=== PATIENT | female | born 1930 | race Caucasian/White ===

== ENCOUNTER 2018-06-12 10:24 | Observation (INO) | payer MEDICARE ==
[2018-06-12] MEDS ORDERED: NS 0.9% 1000 ML** 1,000 ML IV ONE (10:36)
--- NOTE | 2018-06-12 10:40 | ED ---
Complex/Multi-Sys Presentation - HPI Summary HPI Summary: Pt is a 88 y/o female brought in by EMS who presents to the ED c/o weakness. At 8:00 this morning she slid out of bed due to weakness, which is now resolved. She is concerned that something bad happened this morning in bed since she didnt get up to urinate in the middle of the night. Pt denies any injuries, and is able to move all extremities. She feels off-balance when standing up. She denies any CP, SOB, dizziness, neck pain, leg pain, or hip pain. Yesterday she had a cystoscopy performed by Dr. Chavez for a recent bladder infection. Pt was on antibiotics for the infection. Pt normally walks with a cane and lives alone. - History Of Current Complaint Time Seen by Provider: 06/12/18 10:25 Hx Obtained From: Patient, EMS Onset/Duration: Gradual Onset, Lasting Hours - This morning at 8:00, Resolved Timing: Constant Aggravating Factor(s): Recent cystoscopy Alleviating Factor(s): Nothing Associated Signs And Symptoms: Positive: Weakness. Negative: Dizziness, SOB, Chest Pain Related History: Recent Illness - bladder infection - Allergies/Home Medications Allergies/Adverse Reactions: Allergies Allergy/AdvReac Type Severity Reaction Status Date / Time No Known Allergies Allergy Verified 06/12/18 10:50 Home Medications: Home Medications Aspirin 81 mg PO DAILY WITH MEAL 06/12/18 [History Confirmed 06/12/18] PMH/Surg Hx/FS Hx/Imm Hx Endocrine/Hematology History: Denies: Hx Diabetes Cardiovascular History: Reports: Hx Hypertension Denies: Hx Congestive Heart Failure, Hx Pacemaker/ICD History: Denies: Hx Dialysis, Hx Renal Disease Musculoskeletal History: Reports: Hx Arthritis Sensory History: Reports: Hx Cataracts, Hx Contacts or Glasses, Hx Hearing Aid Opthamlomology History: Reports: Hx Cataracts, Hx Contacts or Glasses Psychiatric History: Denies: Hx Panic Disorder - Cancer History Hx Chemotherapy: No Hx Radiation Therapy: No - Surgical History Surgery Procedure, Year, and Place: x3, RIGHT LEG COMPOUND FX Infectious Disease History: No Infectious Disease History: Denies: Traveled Outside the [place] in Last 30 Days - Family History Known Family History: Negative: Blood Disorder - Social History Alcohol Use: Weekly Hx Substance Use: No Substance Use Type: Reports: None Substance Use Comment - Amount & Last Used: unknown Hx Tobacco Use: No Smoking Status (MU): Never Smoked Tobacco Review of Systems Positive: Other - generalized weakness Negative: Chest Pain Negative: Shortness Of Breath Negative: Arthralgia - hip, Myalgia - neck, leg Neurological: Other - off balance, NEGATIVE: dizziness All Other Systems Reviewed And Are Negative: Yes Physical Exam - Summary Physical Exam Summary: Appearance: Well appearing, no pain distress Skin: warm, dry, reflects adequate perfusion Head/face: normal Eyes: EOMI, FELICITAS ENT: mucous membranes moist Neck: supple, non-tender Respiratory: CTA, breath sounds present Cardiovascular: RRR, pulses symmetrical Abdomen: non-tender, soft Bowel Sounds: present Musculoskeletal: normal, strength/ROM intact Neuro: sensory motor intact, A&Ox3, generalized weakness, shuffling gait but able to support her own weight without falling Triage Information Reviewed: Yes Vital Signs On Initial Exam: Initial Vitals Temp Pulse Resp BP Pulse Ox 99.3 F 91 16 146/64 98 06/12/18 10:27 06/12/18 10:27 06/12/18 10:27 06/12/18 10:27 06/12/18 10:27 Vital Signs Reviewed: Yes Diagnostics - Vital Signs Vital Signs Temp Pulse Resp BP Pulse Ox 06/12/18 10:27 99.3 F 91 16 146/64 98 - Laboratory Result Diagrams: 06/12/18 13:18 06/12/18 11:43 Lab Statement: Any lab studies that have been ordered have been reviewed, and results considered in the medical decision making process. - Radiology CXR Radiology Interpretation Completed By: Radiologist Summary of Radiographic Findings: NO ACTIVE CARDIOPULMONARY DISEASE. ED physician reviewed radiology report. - CT Brain CT CT Interpretation Completed By: Radiologist Summary of CT Findings: 1. NO ACUTE INTRACRANIAL PATHOLOGY. 2. MILD PROMINENCE OF THE VENTRICULAR SYSTEM WITH SUSPECTED THE SULCI, WHICH CAN BE SEEN IN THE SETTING of NORMAL PRESSURE HYDROCEPHALUS. ED physician reviewed radiology report. - EKG 10:38 Cardiac Rate: NL - 68 bpm EKG Rhythm: Sinus Rhythm ST Segment: Normal Summary of EKG Findings: Nl axis, nl intervals Complex Multi-Symp Course/Dx Course Of Treatment: Nurse's notes reviewed. Patient with generalized weakness , shuffling gait and recent fall. She was instrumented yesterday with cystoscopy. Had recent UTI. Urine today is negative. She does have leukocytosis and elevated CRP. The x-ray is negative. There is no other definite source of infection. She was hydrated here in feeling well but still remains a significant fall risk. I discussed the case with the hospitalist who has accepted the admission. - Diagnoses Differential Diagnoses/HQI/PQRI: Closed Cranial Trauma, Metabolic Abnormality, Sepsis, Urinary Tract Infection Provider Diagnoses: Fall, Generalized weakness, Leukocytosis - Physician Notifications Discussed Care Of Patient With: Jer Estevez Time Discussed With Above Provider: 14:12 Instructed by Provider To: Admit As Inpatient Discharge - Sign-Out/Discharge Documenting (check all that apply): Patient Departure - Admit Patient Received Moderate/Deep Sedation with Procedure: No - Discharge Plan Condition: Stable Disposition: ADMITTED TO [facility] Referrals: Grace Maradiaga MD [Primary Care Provider] - - Billing Disposition and Condition Condition: STABLE Disposition: Admitted to [facility] - Attestation Statements Document Initiated by Scribe: Yes Documenting Scribe: Amena Maharaj Provider For Whom Maryibe is Documenting (Include Credential): Evert Durham MD Scribe Attestation: IAmena, scribed for Evert Durham MD on 06/12/18 at 1424. Scribe Documentation Reviewed: Yes Provider Attestation: The documentation as recorded by the Amena liao accurately reflects the service I personally performed and the decisions made by , Evert Durham MD Status of Scribe Document: Viewed
[2018-06-12 12:18] LABS: Urine Appearance Clear; Urine Bilirubin Negative (Negative); Urine Blood Negative (Negative); Urine Color Yellow; Urine Glucose Negative (Negative); Urine Ketones Negative (Negative); Urine Nitrite Negative (Negative); Urine Protein Negative (Negative); Urine Specific Gravity 1.019 (1.010-1.030); Urine Urobilinogen Negative (Negative)
[2018-06-12 12:37] LABS: TSH (Thyroid Stimulating Horm) 1.49 mcIU/mL (0.34-5.60)
[2018-06-12 13:03] LABS: Albumin 3.7 g/dL (3.2-5.2); Albumin/Globulin Ratio 1.5 (1-3); C Reactive Protein 46.83 mg/L (<8.01); Calcium 8.8 mg/dL (8.6-10.3); EGFR African American 88.7 (>60); EGFR Non-African American 73.3 (>60); Globulin 2.5 g/dL (2-4); Total Protein 6.2 g/dL (6.4-8.9)
[2018-06-12 13:36] LABS: ABS Basophils 0 10^3/ul (0-0.2); ABS Eosinophils 0.1 10^3/ul (0-0.6); ABS Lymphocytes 1.6 10^3/ul (1.0-4.8); ABS Monocytes 1.1 10^3/ul (0-0.8); ABS Neutrophils 9.1 10^3/ul (1.5-7.7); ABS Nucleated RBC 0 10^3/ul; Eosinophil % 0.4 %; Hematocrit 35 % (35-47); Hemoglobin 11.6 g/dl (12.0-16.0); Lymphocyte % 13.2 %; Mean Corpuscular HGB Conc 34 g/dl (31-36); Mean Corpuscular Hemoglobin 33 pg (27-31); Mean Corpuscular Volume 97 fL (80-97); Mean Platelet Volume 8.3 fL (7.4-10.4); Nucleated Red Blood Cells % 0.1; Platelet Count 138 10^3/ul (150-450); Red Blood Count 3.55 10^6/ul (4.00-5.40); Red Cell Distribution Width 15 % (10.5-15); White Blood Count 11.8 10^3/ul (3.5-10.8)
[2018-06-12] MEDS ORDERED: cefTRIAXone(*) 1 GM in NS 0.9% 50 ML* 50 ML IVPB ONE (13:50)
[2018-06-12 13:59] LABS: INR 0.93 (0.77-1.02)
[2018-06-12] MEDS ORDERED: Acetaminophen TAB* 325 MG PO PRN (15:39)
[2018-06-12] MEDS ORDERED: Ondansetron INJ* 2 MG/ML VIAL IV PRN (15:39)
[2018-06-12] MEDS ORDERED: Enoxaparin(*) 40 MG/0.4 ML SYR SUBCUT SCH (16:00)
[2018-06-12] MEDS ORDERED: Atorvastatin* 10 MG TAB PO SCH ×2 (17:00)
--- NOTE | 2018-06-12 18:21 | HP ---
ADMISSION HISTORY AND PHYSICAL: DATE OF ADMISSION: 06/12/18 PRIMARY CARE PROVIDER: Dr. Maradiaga. HEALTHCARE PROXY: Is her daughter. CODE STATUS: DNR, discussed code status with the patient and her daughter. New MOL completed. SOURCE OF INFORMATION: History obtained from interview with the patient and her daughter. RELIABILITY: Fair. CHIEF COMPLAINT: Altered mental status. HISTORY OF PRESENT ILLNESS: This is an 88-year-old female with past medical history of TIA in 2014 as well as recent urinary tract infection with E. coli in April 2018, worsening urinary incontinence for which was seen by Dr. Chavez. She was treated for 3 weeks of Myrbetriq as well as 1 week of antibiotics, which she recently completed then returned to see Dr. Chavez yesterday for a followup at which time, she underwent a cystoscopy. She went to bed last night at 8 o'clock and this morning when she did not answer her phone at 8:30 in the morning as she usually does when her daughter calls every morning, daughter became concerned. The patient was found on the floor alert, but had difficult time explaining how she arrived there. She does hold a Life alert and did not hit the button. She seemed confused about the events leading up to her being on the floor , although that is too big, but at same time cannot outline the sequence of the events that led to her falling to the floor. She had no pain, but because, she was more confused and could not identify how she landed up on the floor, she was brought in the emergency room for evaluation. She has had no nausea. She has been nauseous today, now improved, but no emesis. She had headache earlier, this is now resolved. Her daughter felt that she has had more unsteady gait today. PAST MEDICAL HISTORY: Includes hypertension, arthritis, cataracts, history of suspected TIA in 2015, recent urinary tract infection April 2018 with E. coli. She had a right shoulder dislocation as well as potential history of DVT in 2014. It is unconfirmed by this author. MEDICATIONS: Reviewed from the patient's list: 1. Triamcinolone twice daily as needed. 2. Compression stocking use during the day. 3. Atorvastatin 5 mg daily. 4. Hydrochlorothiazide 12.5 mg daily. 5. Multivitamin 1 tab daily. 6. Calcium/vitamin D 500/400 one in the evening. 7. Vitamin D 400 mg in the evening as well. 8. Alendronate 70 mg once a week. ALLERGIES: No known drug allergies. FAMILY HISTORY: Father at 87 of unknown causes. Mother at 43 of childbirth. SOCIAL HISTORY: Lives alone. Uses a cane regularly. No tobacco, rare alcohol. REVIEW OF SYSTEMS: As per HPI. Otherwise, all other systems negative. PHYSICAL EXAMINATION GENERAL: Elderly woman, sitting up in bed, interactive, pleasant, in no apparent distress. VITAL SIGNS: In the emergency room, blood pressure 109/53, heart rate 73, respiratory rate 17, 97% on room air, T-max in the emergency room 99.3. HEENT: Oropharynx is clear. She has moist mucous membranes. Sclerae are anicteric. She has regular rate and rhythm. She has an early peaking 2/6 systolic ejection murmur loudest in the right upper sternal border. LUNGS: Clear with trace rales in her right base. ABDOMEN: Soft, nontender, nondistended. EXTREMITIES: Warm and well perfused, trace bilateral lower extremity edema. NEUROLOGIC: She is alert and oriented x3. Her cranial nerves II through XII are intact. She has intact strength throughout. PSYCHIATRIC: She has no apparent anxiety, agitation, or depression. DIAGNOSTIC STUDIES/LAB DATA: Labs reviewed. Noted for benign urine. Glucose 106, lactic 1.2, TSH 1.49, white blood cell count is 11.8 similar to February, hemoglobin is 11.6 decreased from February 2018, platelets 138. Data reviewed. Brain CT, impression: No acute intracranial pathology, mild prominence of the ventricular system with respect to the sulci which can be seen in the setting of normal pressure hydrocephalus. Chest x-ray, impression: No active cardiopulmonary disease. EKG, impression: Normal sinus rhythm. Left axis, good airway progression. No ST or T wave changes. ASSESSMENT AND PLAN: An 88-year-old female with past medical history of transient ischemic attack, found on the floor this morning with question how she arrived there. 1. Altered mental status, doubt transient ischemic attack, although the patient does have a history, should remain on aspirin. Gait is unsteady when tested by emergency room physician. I think she would benefit from neuro checks as well as continue monitoring in the hospital overnight. I do not think she needs telemetry at this time. We will continue home medications as her urine cultures remain negative as well as monitor for debility. Request Physical Therapy consultation tomorrow given unsteady gait. 2. Hypertension. Continue hydrochlorothiazide. 3. Hyperlipidemia. Continue atorvastatin. 4. History of transient ischemic attack. We will continue aspirin as well as blood pressure and cholesterol control. 5. DVT prophylaxis is Lovenox. TIME SPENT: Greater than 60 minutes spent in admission with this patient, greater than half spent face to face with the patient and her daughter. [id number]/[facility] #: [id number] [place]
[2018-06-13] MEDS ORDERED: Aspirin 81 mg CHEW TAB* 81 MG TAB.CHEW PO SCH (08:30)
[2018-06-13] MEDS ORDERED: Calcium/Vitamin D TAB 250/125* TAB PO SCH (09:00)
[2018-06-13] MEDS ORDERED: Hydrochlorothiazide TAB* 25 MG PO SCH (09:00)
[2018-06-13] MEDS ORDERED: Vitamin THERAPEUTIC TAB PO SCH (09:00)
[2018-06-13 10:52] VITALS: BP 143/57
--- NOTE | 2018-06-13 15:49 | DS ---
CC: Dr. Grace Maradiaga * DATE OF ADMISSION: 06/12/2018. DATE OF DISCHARGE: 06/13/2018. PRIMARY CARE PHYSICIAN: Dr. Grace Maradiaga. PRIMARY DIAGNOSIS: Gait instability as well as fall. SECONDARY DIAGNOSES: Hypertension, arthritis, history of TIA. MEDICATIONS AT DISCHARGE: Unchanged from admission, include: 1. Multivitamin one cap daily. 2. Hydrochlorothiazide 12.5 mg daily. 3. Calcium/vitamin D one tab daily. 4. Aspirin 81 mg daily. 5. Atorvastatin 5 mg in the evening. HISTORY OF PRESENT ILLNESS/HOSPITAL COURSE: This is an 88-year-old female with a past medical history as outlined in the history of present illness on the day admission who presented to the hospital after waking, falling to the floor however with a poor story of how she ended there, and inability to vinyl cutter order to get to the telephone. In addition, she did not press her Life Alert button. There was a concern that she had been a little altered and that was why she did not hit the button to call for help and she had gait instability leading to her fall. For this reason, she was admitted to the hospital for further evaluation and monitoring. She was seen in consultation with Physical Therapy who recommended a rolling walker at home which was arranged prior to the patient's discharge. Additional home care in the form of VNS was recommended to the patient; however, she declined. There were no complications during the course of the hospital stay. She was ambulating day of discharge and worked well with Physical Therapy. She was thought to be back to her baseline at the time of discharge. AT FOLLOW-UP, PLEASE: 1. Evaluate for continued stability outside of the hospital. 2. No other specific labs or vitals that need follow-up. REASONS TO RETURN TO THE HOSPITAL: Including, but not limited to recurrent or worsening symptoms, including additional falls, confusion, weakness, aphasia, chest pain, shortness of breath, nausea, vomiting, lightheadedness, fevers, chills, or cough were discussed with the patient, she acknowledged understanding. TIME SPENT: Greater than 45 minutes were spent on this discharge of this patient, greater than half was spent [id number] with the patient. [id number]/[facility] #: [id number] [facility]
== END 2018-06-13 11:30 | disposition home or self-care (01) ==
LOC: ED 10:24 → MED 15:39
PROVIDERS: ADMIT Internal Medicine; ATTEND Internal Medicine
DX: R26.89 Other abnormalities of gait and mobility (principal); I10 Essential (primary) hypertension; M19.90 Unspecified osteoarthritis, unspecified site; Z86.73 Personal history of transient ischemic attack (TIA), and cerebral infarction without residual deficits; Z79.82 Long term (current) use of aspirin; R53.1 Weakness; D72.829 Elevated white blood cell count, unspecified; R41.82 Altered mental status, unspecified; R42 Dizziness and giddiness
CPT/HCPCS: 36415; 70450; 71045; 80053; 81003; 83605; 83735; 84443; 84484; 85025; 85610; 86140; 93005; 96361; 96365; 96372; 96376; 99283; A9270-GY; G0378; G8978-GP-CH; G8979-GP-CH; G8980-GP-CH; J0696; J1650; J2405